=== PATIENT | male | born 1985 | race Two or more races ===

== ENCOUNTER 2024-08-05 19:21 | Inpatient (IN) | payer MEDICAID, OTHER ==
[~2024-08-05] VITALS: Ht 182.9 cm; Wt 109.4 kg
--- NOTE | 2024-08-05 19:56 | ED.PDOC ---
GI ASSESSMENT HPI Comments 48-year-old male who came to ER for abdominal pain. Patient states he has been having intermittent episodes of epigastric abdominal pain since yesterday, described as aching, sharp, nonradiating, associated bouts of nausea and vomiting. Does have history of gastric sleeve surgery 4 years ago. 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 Allergies: Coded Allergies: NO KNOWN ALLERGIES (Unverified , 08/05/24) Information Source: Patient Mode of Arrival: Ambulatory Timing: Hours Duration: Intermittent Prehospital treatment: None Quality: Aching, Sharp Vomitus: Watery Stool: Normal Severity: Moderate Recent: None Recent Hx of: Abdominal Surgery Pain Location: Epigastric Modifying Factors: Nothing Associated sign and symptoms: Nausea, Vomiting, Abdominal Pain Past Medical History PAST MEDICAL HISTORY: Denies Surgical History (Other): Gastric sleeve 4 years ago Family History Family History: Reviewed,noncontributory to illness Social History Smoker: Non-Smoker Alcohol: Denies ETOH Use Drugs: Denies Drug Use Lives In: Home Constitutional: denies: chills, diaphoresis, fatigue, fever, malaise, sweats, weakness, others EENTM: denies: blurred vision, double vision, ear bleeding, ear discharge, ear drainage, ear pain, ear ringing, eye pain, eye redness, hearing loss, mouth pain, mouth swelling, nasal discharge, nose bleeding, nose congestion, nose pain, photophobia, tearing, throat pain, throat swelling, voice changes, others Respiratory: denies: cough, hemoptysis, orthopnea, SOB at rest, shortness of breath, SOB with excertion, stridor, wheezing, others Cardiovascular: denies: chest pain, dizzy spells, diaphoresis, Dyspnea on exertion, edema, irregular heart beat, left arm pain, lightheadedness, palpitations, PND, syncope, others Gastrointestinal: reports: abdominal pain, nausea, vomiting; denies: abdomen distended, blood streaked bowels, constipated, diarrhea, dysphagia, difficulty swallowing, hematemesis, melena, poor appetite, poor fluid intake, rectal bleeding, rectal pain, others Genitourinary: denies: burning, dysuria, flank pain, frequency, hematuria, incontinence, penile discharge, penile sore, pain, testicle pain, testicle swelling, urgency, others Neurological: denies: dizziness, fainting, headache, left sided numbness, left sided weakness, numbness, paresthesia, pre-existing deficit, right sided numbness, right sided weakness, seizure, speech problems, tingling, tremors, weakness, others Musculoskeletal: denies: back pain, gout, joint pain, joint swelling, muscle pain, muscle stiffness, neck pain, others Integumetry: denies: bruises, change in color, change in hair/nails, dryness, laceration, lesions, lumps, rash, wounds, others Allergic/Immunocompromised: denies: Difficulty Healing, Frequent Infections, Hives, Itching, others Hematologic/Lymphatic: denies: anemia, blood clots, easy bleeding, easy bruising, swollen glands, others Endocrine: denies: excessive hunger, excessive sweating, excessive thirst, excessive urination, flushing, intolerance to cold, intolerance to heat, unexplained weight gain, unexplained weight loss, others Psychiatric: denies: anxiety, bipolar disorder, depression, hopeless, panic disorder, schizophrenia, sleepless, suicidal, others Physical Exam General Appearance: Mild Distress HEENT: Other (Pupils and face symmetric. Moist mucous membranes.) Neck: Full Range of Motion, Normal Inspection Respiratory: Lungs Clear, No Accessory Muscle Use, No Respiratory Distress, Normal Breath Sounds Cardiovascular: No Edema, No JVD, Regular Rate/Rhythm Breast Exam: Deferred Gastrointestinal: Epigastric, LUQ, RUQ, Soft, Tenderness Genitalia: Deferred Pelvic: Deferred Rectal: Deferred Extremities: Normal inspection, Normal range of motion, Non-tender, No pedal edema Neurologic: Alert (Oriented x4), Normal Affect, Normal Mood, Other (Ambulatory) Cerebellar Function: NOT DONE Reflexes: NOT DONE Skin: Dry, Pallor, Warm Lymphatic: NOT DONE Was a procedure done? Was a procedure done?: No GI differential Dx Differential Diagnosis: Cholecystitis, Diverticular disease, Gastritis/PUD, Gastroenteritis, Hernia, Hepatitis, Pancreatitis, PID, UTI, Diabetes/ DKA, Electrolyte Imbalance, Food Poisoning, Stress Ulcer X-Ray, Labs, Meds, VS Vital Signs Date Time Temp Pulse Resp B/P (MAP) Pulse Ox O2 Delivery O2 Flow Rate FiO2 08/05/24 21:20 53 20 113/56 08/05/24 20:43 98.6 60 14 122/67 (85) 95 98.6 08/05/24 20:43 60 14 95 Room Air 08/05/24 20:42 60 14 122/67 08/05/24 19:35 98.4 71 18 127/70 (89) 97 98.4 Lab Test 08/05/24 20:12 08/05/24 19:50 Range/Units White Blood Count 7.2 4.4-10.8 10^3/uL Red Blood Count 4.65 4.5-5.90 10^6/uL Hemoglobin 15.0 13.5-17.5 g/dL Hematocrit 43.6 41.0-53.0 % Mean Corpuscular Volume 93.6 80.0-100.0 fL Mean Corpuscular Hemoglobin 32.3 H 28.0-32.0 pg Mean Corpuscular Hemoglobin Concent 34.5 32.0-36.0 g/dL Red Cell Distribution Width 13.3 11.8-14.3 % Platelet Count 176 140-450 10^3/uL Mean Platelet Volume 9.0 6.9-10.8 fL Neutrophils (%) (Auto) 59.1 37.0-80.0 % Lymphocytes (%) (Auto) 21.1 10.0-50.0 % Monocytes (%) (Auto) 8.9 0.0-12.0 % Eosinophils (%) (Auto) 9.4 H 0.0-7.0 % Basophils (%) (Auto) 1.5 0.0-2.0 % Neutrophils # (Auto) 4.2 1.6-8.6 10 ^3/uL Lymphocytes # (Auto) 1.5 0.4-5.4 10 ^3/uL Monocytes # (Auto) 0.6 0-1.3 10 ^3/uL Eosinophils # (Auto) 0.7 0-0.8 10 ^3/uL Basophils # (Auto) 0.1 0-0.2 10 ^3/uL Nucleated Red Blood Cells 0.1 % Sodium Level 140 136-145 mmol/L Potassium Level 4.1 3.5-5.1 mmol/L Chloride Level 101 98-107 mmol/L Carbon Dioxide Level 33 H 20-31 mmol/L Anion Gap 6 5-15 Blood Urea Nitrogen 12 9-23 mg/dL Creatinine 1.19 0.700-1.30 mg/dL Glomerular Filtration Rate Calc 81 >90 mL/min BUN/Creatinine Ratio 10.1 10.0-20.0 Serum Glucose 97 74-106 mg/dL Calcium Level 9.4 8.7-10.4 mg/dL Total Bilirubin 0.6 0.2-1.0 mg/dL Aspartate Amino Transferase (AST) 15 <34 U/L Alanine Aminotransferase (ALT) 10 7-40 U/L Alkaline Phosphatase 64 46-116 U/L Troponin I High Sensitivity < 3 L </=54 ng/L Total Protein 7.2 5.7-8.2 g/dL Albumin 4.5 3.2-4.8 g/dL Lipase 47 12-53 U/L Urine Color Yellow Yellow Urine Clarity Clear Clear Urine pH 6.0 5.0-9.0 Urine Specific [place] 1.023 1.001-1.035 Urine Protein Negative Negative Urine Ketones Negative Negative Urine Blood Negative Negative /uL Urine Nitrite Negative Negative Urine Bilirubin Negative Negative Urine Urobilinogen Normal Negative mg/dL Urine Leukocyte Esterase Negative Negative /uL Urine RBC 1 0 - 3 /hpf Urine Microscopic WBC 1 0-3 /HPF Urine Squamous Epithelial Cells None seen <5 /hpf Urine Bacteria None seen None Seen /hpf Urine Glucose Normal Normal mg/dL Current Medications Medications (Trade) Dose Ordered Sig/Jus Route Start Time Stop Time Status Last Admin Sodium Chloride 1,000 ml @ 1,000 mls/hr Q1H ONCE IV 08/05/24 20:00 08/05/24 20:59 DC 08/05/24 20:41 Ondansetron HCl (Zofran) 4 mg ONCE ONCE IV 08/05/24 20:00 08/05/24 20:01 DC 08/05/24 20:41 Morphine Sulfate 4 mg ONCE ONCE IV 08/05/24 20:00 08/05/24 20:01 DC 08/05/24 20:42 Pantoprazole Sodium (Protonix) 40 mg ONCE ONCE IV 08/05/24 20:00 08/05/24 20:01 DC 08/05/24 20:41 Piperacillin Sod/ Tazobactam Sod 100 ml @ 100 mls/hr ONCE ONCE IV 08/05/24 21:00 08/05/24 21:59 DC 08/05/24 23:36 Exam: CT CT AB PEL WO CON-NO ORAL OR IV History: mid abd/epig pain, n/v Comparison Study: None TECHNIQUE: Multidetector CT of the abdomen and pelvis was performed from lung bases to pubic symphysis. Imaging was performed without IV contrast. Axial, coronal, and sagittal multiplanar reformats were obtained from the axial data set by the technologist. RADIATION DOSE: DLP 722.98 mGy.cm; CTDI vol 12.5 mGy. Findings: Limited evaluation of the solid organs in the absence of IV contrast. Lungs: Minimal basilar atelectasis. Liver: Unremarkable. Gallbladder: There is suggestion of mild gallbladder wall thickening and pericholecystic stranding. No definite biliary ductal dilatation. Spleen: Unremarkable. Pancreas: Unremarkable. Adrenals: Unremarkable Kidneys: Unremarkable. GI tract: No bowel obstruction. Postsurgical changes of the stomach. No CT ev idence of appendicitis. : Unremarkable. Vasculature: Unremarkable. Lymphadenopathy: Unremarkable. Peritoneum: No ascites. Musculoskeletal: Unremarkable. Soft tissues: Unremarkable Impression: 1. Findings as above raising the possibility of acute cholecystitis in the appropriate clinical setting. A right upper quadrant ultrasound may be beneficial in further assessment as clinically indicated. 2. Incidental findings as detailed. RIGHT UPPER QUADRANT ABDOMINAL ULTRASOUND CLINICAL HISTORY: eval for cholecystitis COMPARISON: CT obtained earlier the same day. TECHNIQUE: Grayscale and color Doppler ultrasound imaging of the right upper quadrant is performed. FINDINGS: Pancreas: Visualized portions appear grossly unremarkable. Liver: Measures approximately 18.5 cm in length. Circumscribed hyperechoic lesion anteriorly measuring approximately 1.5 cm in diameter. Gallbladder: Distended with wall thickening. Multiple stones are noted dependently and within the gallbladder neck. No sonographic pritchett's sign reported. Common bile duct: Nondilated. Right Kidney: Measures 10.1 cm in length. No hydronephrosis. Right upper quadrant Inferior vena cava: Visualized portions are grossly patent. IMPRESSION: Cholelithiasis with gallbladder distention and wall thickening. No sonographic pritchett's sign reported, however, this may be due to recent administration of pain medication. Findings suggest but are otherwise equivocal for cholecystitis. Please correlate clinically. Small, hyperechoic hepatic lesion incidentally noted. This most likely represents a hemangioma but can be further evaluated with follow-up MRI. X-Ray, Labs, Meds, VS Comment 38-year-old male with a history of gastric sleeve procedure complaining of abdominal pain Initial vitals unremarkable Exam remarkable for epigastric, right upper quadrant and left upper quadrant tenderness to palpation Rhythm strip independently interpreted by me: Sinus rhythm, rate 71, no ectopy. CT abdomen and pelvis Impression: 1. Findings as above raising the possibility of acute cholecystitis in the appropriate clinical setting. A right upper quadrant ultrasound may be beneficial in further assessment as clinically indicated. 2. Incidental findings as detailed. Right upper quadrant ultrasound IMPRESSION: Cholelithiasis with gallbladder distention and wall thickening. No sonographic m urphy's sign reported, however, this may be due to recent administration of pain medication. Findings suggest but are otherwise equivocal for cholecystitis. Please correlate clinically. Small, hyperechoic hepatic lesion incidentally noted. This most likely represents a hemangioma but can be further evaluated with follow-up MRI. CBC, CMP, lipase and UA unremarkable Patient treated with the following in the ED: 1 L 0.9 normal saline IV bolus, morphine 4 mg IV, Zofran 4 mg IV, Protonix 40 mg IV, Zosyn 4.5 g IV Plan is to admit the patient for IV antibiotics and surgical evaluation Time of 1ST Reevaluation: 19:51 Reevaluation 1ST: Unchanged Patient Education/Counseling: Diagnosis, Treatment Family Education/Counseling: No Family Present SEPSIS Sepsis Screen Physician Orders Troponin-I Hs (08/06/24 00:00) Troponin-I Hs (08/06/24 03:00) Troponin-I Hs (08/06/24 06:00) Ct Ab Pel Wo Con-No Oral Or Iv (08/05/24 19:48) Abdomen Limited (08/05/24 20:59) Blood Culture (08/05/24 20:59) Pantoprazole (Protonix) (08/06/24 10:00) Ceftriaxone 1gm/50ml D5w (Rocephin) (08/06/24 09:00) Allergies (08/05/24 22:20) Code Status (08/05/24 22:20) Oxygen Per Hour (08/05/24 22:20) Hydrocodone-Acet 5/325mg Tab ([place] 5/32 (08/05/24 22:30) Ondansetron Hcl (Zofran) (08/05/24 22:30) Docusate Sodium Capsule (Colace Capsule) (08/05/24 22:30) Complete Blood Count (08/06/24 04:00) Comprehensive Metabolic Panel (08/06/24 04:00) Condition: Serious (08/05/24 22:20) Acetaminophen Tablet (Tylenol Tablet) (08/05/24 22:30) Clear Liq Diet (08/06/24 Breakfast) Bedrest With Bathroom Privileg (08/05/24 22:20) Sequential Compression Device (08/05/24 ) Vital Signs Date Time Temp Pulse Resp B/P (MAP) Pulse Ox O2 Delivery O2 Flow Rate FiO2 08/05/24 21:20 53 20 113/56 08/05/24 20:43 98.6 60 14 122/67 (85) 95 98.6 08/05/24 20:43 60 14 95 Room Air 08/05/24 20:42 60 14 122/67 08/05/24 19:35 98.4 71 18 127/70 (89) 97 98.4 Laboratory Tests Test 08/05/24 20:12 White Blood Count 7.2 10^3/uL (4.4-10.8) Medications Medications Dose Ordered Sig/Jus Route Start Time Stop Time Status Last Admin Dose Admin Morphine Sulfate 4 mg ONCE ONCE IV 08/05/24 20:00 08/05/24 20:01 DC 08/05/24 20:42 Ondansetron HCl 4 mg ONCE ONCE IV 08/05/24 20:00 08/05/24 20:01 DC 08/05/24 20:41 Pantoprazole Sodium 40 mg ONCE ONCE IV 08/05/24 20:00 08/05/24 20:01 DC 08/05/24 20:41 Piperacillin Sod/ Tazobactam Sod 100 ml @ 100 mls/hr ONCE ONCE IV 08/05/24 21:00 08/05/24 21:59 DC 08/05/24 23:36 Sodium Chloride 1,000 ml @ 1,000 mls/hr Q1H ONCE IV 08/05/24 20:00 08/05/24 20:59 DC 08/05/24 20:41 Departure 1 Departure Time of Disposition: 21:28 Impression: Primary Impression: Acute cholecystitis Disposition: ADMITTED INPATIENT Admit to: Med Surg Condition: Guarded Critical Care Note Critical Care Time?: No Stability Stability form required: No Heart Score Heart Score: Heart Score Response (Comments) Value History N/A 0 EKG N/A 0 Age N/A 0 Risk Factors N/A 0 Troponin N/A 0 Total 0 I personally scribed for SUMANTH RODRIGUEZ MD ([facility]) on 08/05/24 at 19:56. Electronically submitted by Logan Figueroa ([facility]). I personally scribed for SUMANTH RODRIGUEZ MD ([facility]) on 08/05/24 at 21:04. Electronically submitted by Logan Figueroa ([facility]). I personally scribed for SUMANTH RODRIGUEZ MD ([facility]) on 08/05/24 at 23:24. Electronically submitted by Logan Figueroa ([facility]). SUMANTH RODRIGUEZ MD Aug 05, 2024 19:56
[2024-08-05 20:11] LABS: Urine Bacteria None Seen /hpf (None Seen)
[2024-08-05 20:24] LABS: Basophils # (auto) 0.1 10 ^3/uL (0-0.2); Basophils % (auto) 1.5 % (0.0-2.0); Eosinophils # (auto) 0.7 10 ^3/uL (0-0.8); Eosinophils % (auto) 9.4 % (0.0-7.0); Hematocrit 43.6 % (41.0-53.0); Lymphocytes # (auto) 1.5 10 ^3/uL (0.4-5.4); Lymphocytes % (auto) 21.1 % (10.0-50.0); Mean Corpuscular Hemoglobin 32.3 pg (28.0-32.0); Mean Corpuscular Hgb Conc. 34.5 g/dL (32.0-36.0); Mean Corpuscular Volume 93.6 fL (80.0-100.0); Monocytes # (auto) 0.6 10 ^3/uL (0-1.3); Monocytes % (auto) 8.9 % (0.0-12.0); Neutrophils # (auto) 4.2 10 ^3/uL (1.6-8.6); Neutrophils % (auto) 59.1 % (37.0-80.0); Nucleated Red Blood Cells % 0.1 %; Platelet Count (auto) 176 10^3/uL (140-450); Red Blood Cells 4.65 10^6/uL (4.5-5.90); Red Cell Distribution Width 13.3 % (11.8-14.3); White Blood Cell 7.2 10^3/uL (4.4-10.8)
[2024-08-05 20:39] LABS: Urine Blood Negative /uL (Negative); Urine Clarity Clear (Clear); Urine Color Yellow (Yellow); Urine Protein, UAD Negative (Negative); Urine Specific Gravity 1.023 (1.001-1.035); Urine Squamous Epithelial Cell None Seen /hpf (<5); Urine Urobilinogen Normal (Negative); Urine WBC 1 /HPF (0-3)
[2024-08-05] MEDS: PANTOPRAZOLE 40 MG/10 ML VIAL INJ IV ONE (20:41)
[2024-08-05] MEDS: ONDANSETRON HCL 4 MG/2 ML VIAL IV ONE (20:41)
[2024-08-05] MEDS: SODIUM CHLORIDE 0.9% 1,000 ML IV ONE (20:41)
[2024-08-05] MEDS: MORPHINE SULFATE 4 MG/ML SYR/VIAL IV ONE (20:42)
[2024-08-05 20:56] LABS: Alanine Aminotransferase 10 U/L (7-40); Albumin 4.5 g/dL (3.2-4.8); Alkaline Phosphatase 64 U/L (46-116); Anion Gap 6 (5-15); Aspartate Aminotransferase 15 U/L (<34); BUN/Creatinine Ratio 10.1 (10.0-20.0); Blood Urea Nitrogen 12 mg/dL (9-23); Calcium 9.4 mg/dL (8.7-10.4); Chloride 101 mmol/L (98-107); Glucose 97 mg/dL (74-106); Lipase 47 U/L (12-53); Potassium 4.1 mmol/L (3.5-5.1); Sodium 140 mmol/L (136-145); Total Protein 7.2 g/dL (5.7-8.2)
[2024-08-05 20:57] LABS: Bilirubin, Total 0.6 mg/dL (0.2-1.0)
--- NOTE | 2024-08-05 20:57 | DVH ---
Exam: CT CT AB PEL WO CON-NO ORAL OR IV History: mid abd/epig pain, n/v Comparison Study: None TECHNIQUE: Multidetector CT of the abdomen and pelvis was performed from lung bases to pubic symphysi s. Imaging was performed without IV contrast. Axial, coronal, and sagittal multiplanar reformats were obtained from the axial data set by the technologist. RADIATION DOSE: DLP 722.98 mGy.cm; CTDI vol 12.5 mGy. Findings: Limited evaluation of the solid organs in the absence of IV contrast. Lungs: Minimal basilar atelectasis. Liver: Unremarkable. Gallbladder: There is suggestion of mild gallbladder wall thickening and pericholecystic stranding. No definite biliary ductal dilatation. Spleen: Unremarkable. Pancreas: Unremarkable. Adrenals: Unremarkable Kidneys: Unremarkable. GI tract: No bowel obstruction. Postsurgical changes of the stomach. No CT evidence of appendicitis. : Unremarkable. Vasculature: Unremarkable. Lymphadenopathy: Unremarkable. Peritoneum: No ascites. Musculoskeletal: Unremarkable. Soft tissues: Unremarkable Impression: 1. Findings as above raising the possibility of acute cholecystitis in the appropriate clinical setti ng. A right upper quadrant ultrasound may be beneficial in further assessment as clinically indicated . 2. Incidental findings as detailed.
[2024-08-05 20:58] LABS: Carbon Dioxide 33 mmol/L (20-31)
[2024-08-05] MEDS ORDERED: ONDANSETRON HCL 4 MG/2 ML VIAL IV PRN (22:30)
[2024-08-05] MEDS ORDERED: ACETAMINOPHEN 325 MG TAB PO PRN (22:30)
[2024-08-05] MEDS ORDERED: DOCUSATE SOD 100 MG CAP PO PRN (22:30)
--- NOTE | 2024-08-05 22:38 | DVH ---
RIGHT UPPER QUADRANT ABDOMINAL ULTRASOUND CLINICAL HISTORY: eval for cholecystitis COMPARISON: CT obtained earlier the same day. TECHNIQUE: Grayscale and color Doppler ultrasound imaging of the right upper quadrant is performed. FINDINGS: Pancreas: Visualized portions appear grossly unremarkable. Liver: Measures approximately 18.5 cm in length. Circumscribed hyperechoic lesion anteriorly measurin g approximately 1.5 cm in diameter. Gallbladder: Distended with wall thickening. Multiple stones are noted dependently and within the gal lbladder neck. No sonographic pritchett's sign reported. Common bile duct: Nondilated. Right Kidney: Measures 10.1 cm in length. No hydronephrosis. Right upper quadrant Inferior vena cava: Visualized portions are grossly patent. IMPRESSION: Cholelithiasis with gallbladder distention and wall thickening. No sonographic pritchett's sign reported , however, this may be due to recent administration of pain medication. Findings suggest but are othe rwise equivocal for cholecystitis. Please correlate clinically. Small, hyperechoic hepatic lesion incidentally noted. This most likely represents a hemangioma but c an be further evaluated with follow-up MRI.
--- NOTE | 2024-08-05 23:27 | DVHHP2 ---
History of Present Illness Reason for Visit: Acute cholecystitis History of Present Illness The patient is a 48-year-old male who denies past medical history presented to [facility] ED with complaint of intermittent epigastric abdominal pain. Patient reports he has been experiencing nonradiating episodes of abdomina l pain, associated with nausea, vomiting, getting worse that prompted this visit. Patient does have history of gastric sleeves surgery 4 years ago. Patient was seen and evaluated in the ED, laboratory data shows WBC 7.2, platelets 176, sodium 140, potassium 4.1, BUN 12, creatinine 1.19, glucose 97, calcium 9.4, troponin < 3, blood pressure 113/56, heart rate 60, temperature 98.6 F, O2 saturation 95% on room air. Abdomen/pelvis CT revealing cholecystitis, please see medication orders section in the computer. On my assessment, patient denies chest pain, no headache, no dizziness, no diaphoresis, no shortness of breath, no abdominal pain at this moment, no nausea, no vomiting, no fever, no chills. Patient was admitted for further evaluation and medical management. Past Medical History Denies past medical history Past Surgical History Gastric sleeve 4 years ago Family History Reviewed, noncontributory to the management of this case. Past Social History The patient lives at home, denies smoking, alcohol or illicit drugs abuse. Review of Systems Constitutional: No: Fever, Chills, Sweats, Weakness, Malaise, Other Eyes: No: Pain, Vision change, Conjunctivae inflammation, Eyelid inflammation, Other, Redness ENT: No: Ear pain, Ear discharge, Nose pain, Nose discharge, Nose congestion, Mouth pain, Mouth swelling, Throat pain, Throat swelling, Other Respiratory: No: Cough, Dry, Shortness of breath, SOB with excertion, Wheezing, Hemoptysis, Pleuritic Pain, Sputum, Wheezing, Other Cardiovascular: No: Chest Pain, Palpitations, Orthopnea, Paroxysmal Noc. Dyspnea, Edema, Lt Headedness, Other Gastrointestinal: Nausea, Vomiting, Abdominal Pain; No: Diarrhea, Constipation, Melena, Hematochezia, Other Genitourinary: No Dysuria, No Frequency, No Incontinence, No Hematuria, No Retention, No Other Musculoskeletal: No: other, neck pain, shoulder pain, arm pain, back pain, hand pain, leg pain, foot pain Skin: No: Rash, Lesions, Jaundice, Bruising, Other Neurological: No: Weakness, Numbness, Incoordination, Change in speech, Confusion, Seizures, Other Allergies: Coded Allergies: NO KNOWN ALLERGIES (Unverified , 08/05/24) Medications Current Medications Medications Dose Ordered Sig/Jus Route Start Time Stop Time Status Last Admin Dose Admin Pantoprazole Sodium 40 mg DAILY IV 08/06/24 10:00 Ceftriaxone Sodium 50 ml @ 100 mls/hr DAILY@09 IV 08/06/24 09:00 Acetaminophen/ Hydrocodone Bitart 1 tab Q4HP PRN PO 08/05/24 22:30 Ondansetron HCl 4 mg Q4HP PRN IV 08/05/24 22:30 Docusate Sodium 100 mg BIDPRN PRN PO 08/05/24 22:30 Acetaminophen 650 mg Q6HP PRN PO 08/05/24 22:30 Exam Vital Signs Vital Signs Date Time Temp Pulse Resp B/P (MAP) Pulse Ox O2 Delivery O2 Flow Rate FiO2 08/05/24 21:20 53 20 113/56 08/05/24 20:43 98.6 95 98.6 08/05/24 20:43 Room Air General Appearance: Alert, Oriented X3, Cooperative, No acute distress HEENT: Atraumatic, PERRLA, EOMI, Mucous membr. moist/pink Respiratory: Clear to auscultation, Normal air movement Cardiovascular: Regular rate, Normal S1, Normal S2, No murmurs Abdominal: Normal bowel sounds, Soft, No hepatospenomegaly, No masses, Other (Reports tenderness) Extremities: No clubbing, No cyanosis, No edema, Normal pulses, No tendernes s/swelling Skin: No rashes, No breakdown, No significant lesion Neuro: Normal gait, Normal speech, Strength at 5/5 X4 ext, Normal tone, Sensation intact, Cranial nerves 3-12 NL, Reflexes 2+ Psych/Mental Status: Mental status NL, Mood NL Labs/Xrays Labs Test 08/05/24 20:12 08/05/24 19:50 Range/Units White Blood Count 7.2 4.4-10.8 10^3/uL Red Blood Count 4.65 4.5-5.90 10^6/uL Hemoglobin 15.0 13.5-17.5 g/dL Hematocrit 43.6 41.0-53.0 % Mean Corpuscular Volume 93.6 80.0-100.0 fL Mean Corpuscular Hemoglobin 32.3 H 28.0-32.0 pg Mean Corpuscular Hemoglobin Concent 34.5 32.0-36.0 g/dL Red Cell Distribution Width 13.3 11.8-14.3 % Platelet Count 176 140-450 10^3/uL Mean Platelet Volume 9.0 6.9-10.8 fL Neutrophils (%) (Auto) 59.1 37.0-80.0 % Lymphocytes (%) (Auto) 21.1 10.0-50.0 % Monocytes (%) (Auto) 8.9 0.0-12.0 % Eosinophils (%) (Auto) 9.4 H 0.0-7.0 % Basophils (%) (Auto) 1.5 0.0-2.0 % Neutrophils # (Auto) 4.2 1.6-8.6 10 ^3/uL Lymphocytes # (Auto) 1.5 0.4-5.4 10 ^3/uL Monocytes # (Auto) 0.6 0-1.3 10 ^3/uL Eosinophils # (Auto) 0.7 0-0.8 10 ^3/uL Basophils # (Auto) 0.1 0-0.2 10 ^3/uL Nucleated Red Blood Cells 0.1 % Sodium Level 140 136-145 mmol/L Potassium Level 4.1 3.5-5.1 mmol/L Chloride Level 101 98-107 mmol/L Carbon Dioxide Level 33 H 20-31 mmol/L Anion Gap 6 5-15 Blood Urea Nitrogen 12 9-23 mg/dL Creatinine 1.19 0.700-1.30 mg/dL Glomerular Filtration Rate Calc 81 >90 mL/min BUN/Creatinine Ratio 10.1 10.0-20.0 Serum Glucose 97 74-106 mg/dL Calcium Level 9.4 8.7-10.4 mg/dL Total Bilirubin 0.6 0.2-1.0 mg/dL Aspartate Amino Transferase (AST) 15 <34 U/L Alanine Aminotransferase (ALT) 10 7-40 U/L Alkaline Phosphatase 64 46-116 U/L Troponin I High Sensitivity < 3 L </=54 ng/L Total Protein 7.2 5.7-8.2 g/dL Albumin 4.5 3.2-4.8 g/dL Lipase 47 12-53 U/L Urine Color Yellow Yellow Urine Clarity Clear Clear Urine pH 6.0 5.0-9.0 Urine Specific [place] 1.023 1.001-1.035 Urine Protein Negative Negative Urine Ketones Negative Negative Urine Blood Negative Negative /uL Urine Nitrite Negative Negative Urine Bilirubin Negative Negative Urine Urobilinogen Normal Negative mg/dL Urine Leukocyte Esterase Negative Negative /uL Urine RBC 1 0 - 3 /hpf Urine Microscopic WBC 1 0-3 /HPF Urine Squamous Epithelial Cells None seen <5 /hpf Urine Bacteria None seen None Seen /hpf Urine Glucose Normal Normal mg/dL PATIENT: GÉNESIS AHUJAT: [id number] UNIT: [id number] : 1985 LOC: ER ROOM / BED: / AGE / SEX: 38 / M ADM STATUS: REG ER SERVICE 47 ORDERING PHYSICIAN: SUMANTH RODRIGUEZ MD PROCEDURE(s): ABPL - CT AB PEL WO CON-NO ORAL OR IV REASON: mid abd/epig pain, n/v ORDER NUMBER(s): [id number], ACCESSION NUMBER(s): [id number] Exam: CT CT AB PEL WO CON-NO ORAL OR IV History: mid abd/epig pain, n/v Comparison Study: None TECHNIQUE: Multidetector CT of the abdomen and pelvis was performed from lung bases to pubic symphysis. Imaging was performed without IV contrast. Axial, coronal, and sagittal multiplanar reformats were obtained from the axial data set by the technologist. RADIATION DOSE: DLP 722.98 mGy.cm; CTDI vol 12.5 mGy. Findings: Limited evaluation of the solid organs in the absence of IV contrast. Lungs: Minimal basilar atelectasis. Liver: Unremarkable. Gallbladder: There is suggestion of mild gallbladder wall thickening and pericholecystic stranding. No definite biliary ductal dilatation. Spleen: Unremarkable. Pancreas: Unremarkable. Adrenals: Unremarkable Kidneys: Unremarkable. GI tract: No bowel obstruction. Postsurgical changes of the stomach. No CT evide nce of appendicitis. : Unremarkable. Vasculature: Unremarkable. Lymphadenopathy: Unremarkable. Peritoneum: No ascites. Musculoskeletal: Unremarkable. Soft tissues: Unremarkable Impression: 1. Findings as above raising the possibility of acute cholecystitis in the appropriate clinical setting. A right upper quadrant ultrasound may be beneficial in further assessment as clinically indicated. 2. Incidental findings as detailed. ORDERING PHYSICIAN: SUMANTH RODRIGUEZ MD PROCEDURE(s): ABDL - ABDOMEN LIMITED REASON: eval for cholecystitis ORDER NUMBER(s): [id number], ACCESSION NUMBER(s): [id number] RIGHT UPPER QUADRANT ABDOMINAL ULTRASOUND CLINICAL HISTORY: eval for cholecystitis COMPARISON: CT obtained earlier the same day. TECHNIQUE: Grayscale and color Doppler ultrasound imaging of the right upper quadrant is performed. FINDINGS: Pancreas: Visualized portions appear grossly unremarkable. Liver: Measures approximately 18.5 cm in length. Circumscribed hyperechoic lesion anteriorly measuring approximately 1.5 cm in diameter. Gallbladder: Distended with wall thickening. Multiple stones are noted dependently and within the gallbladder neck. No sonographic pritchett's sign reported. Common bile duct: Nondilated. Right Kidney: Measures 10.1 cm in length. No hydronephrosis. Right upper quadrant Inferior vena cava: Visualized portions are grossly patent. IMPRESSION: Cholelithiasis with gallbladder distention and wall thickening. No sonographic pritchett's sign reported, however, this may be due to recent administration of pain medication. Findings suggest but are otherwise equivocal for cholecystitis. Please correlate clinically. Small, hyperechoic hepatic lesion incidentally noted. This most likely rep resents a hemangioma but can be further evaluated with follow-up MRI. Assessment/Plan Assessment/Plan Acute abdominal pain Acute cholecystitis Plan 1. Admit to telemetry unit 2. Breathing treatment 3. Pain control management 4. IV antibiotic management 5. Management of fluids and electrolytes 6. Consultation for surgery 7. Diagnostic test abdomen/pelvis CT 8. DVT prophylaxis-on SCDs 9. Repeat labs CBC, CMP in a.m. 10. Home medication reviewed and reconciled 11. Continue with current medical management 12. Treatment plan discussed with patient and RN. Patient verbalized understanding. Plan discussed with: Patient, Other (RN) My Orders Orders - THIAGO SIMMS DNP Procedure Category Date Status Time Pantoprazole PHA 08/06/24 In Process (Protonix) 10:00 Ceftriaxone 1gm/50ml PHA 08/06/24 In Process D5w (Rocephin) 09:00 Allergies CHANTAL 08/05/24 In Process 22:20 Code Status CODE 08/05/24 Transmitted 22:20 Oxygen Per Hour RT 08/05/24 Transmitted 22:20 Hydrocodone-Acet PHA 08/05/24 In Process 5/325mg Tab ([place] 22:30 Ondansetron Hcl PHA 08/05/24 In Process (Zofran) 22:30 Docusate Sodium PHA 08/05/24 In Process Capsule (Colace 22:30 Complete Blood Count LAB 08/06/24 Verified 04:00 Comprehensive LAB 08/06/24 Verified Metabolic Panel 04:00 Condition: Serious CHANTAL 08/05/24 In Process 22:20 Acetaminophen Tablet PHA 08/05/24 In Process (Tylenol Tablet) 22:30 Clear Liq Diet DIET 08/06/24 Transmitted Breakfast Bedrest With Bathroom CHANTAL 08/05/24 In Process Privileg 22:20 Sequential CHANTAL 08/05/24 In Process Compression Device * Surgical Consult CONS 08/05/24 Transmitted Admit ADMIT 08/05/24 Transmitted 23:25 Nitroglycerin PHA 08/05/24 Logged Sublingual (Ntrostat 23:30 Morphine Sulfate PHA 08/05/24 Logged Injection 23:30 Stat Ekg For Chest CHANTAL 08/05/24 Transmitted Pain 23:25 Notify Md Of Changes CHANTAL 08/05/24 Transmitted From Base 23:25 Compliance Manager For CHANTAL 08/05/24 Transmitted 24 Hours 23:25 Emergency Dysrhythmia CHANTAL 08/05/24 Transmitted Protocol 23:25 Rhythm Strips Once CHANTAL 08/05/24 Transmitted Every Shift 23:25 Oxygen By Nasal RT 08/05/24 Transmitted Cannula 23:25 Problem List: (1) Acute abdominal pain (2) Acute cholecystitis Date of Service: Aug 05, 2024 Billing Provider: THIAGO SIMMS DNP Common Visit Codes: [id number] INP/OBS CARE (HIGH) THIAGO SIMMS DNP Aug 05, 2024 23:27
[2024-08-05] MEDS ORDERED: NITROGLYCERIN 0.4 MG SL TAB SL PRN (23:30)
[2024-08-05] MEDS ORDERED: MORPHINE SULFATE INJ 2 MG/ml SYRG IV PRN (23:30)
[2024-08-05] MEDS: PIPERACILLIN-TAZO 4.5GM 100 ML IV ONE (23:36)
[2024-08-06] MEDS: PIPERACILLIN-TAZO 4.5GM 100 ML IV ONE (01:55)
[2024-08-06 04:30] LABS: Basophils # (auto) 0.1 10 ^3/uL (0-0.2); Eosinophils # (auto) 0.7 10 ^3/uL (0-0.8); Eosinophils % (auto) 9.5 % (0.0-7.0); Hematocrit 40.9 % (41.0-53.0); Hemoglobin 14.2 g/dL (13.5-17.5); Lymphocytes # (auto) 1.2 10 ^3/uL (0.4-5.4); Lymphocytes % (auto) 17.8 % (10.0-50.0); Mean Corpuscular Hemoglobin 32.6 pg (28.0-32.0); Mean Corpuscular Hgb Conc. 34.7 g/dL (32.0-36.0); Mean Corpuscular Volume 93.8 fL (80.0-100.0); Monocytes # (auto) 0.7 10 ^3/uL (0-1.3); Monocytes % (auto) 9.7 % (0.0-12.0); Neutrophils # (auto) 4.3 10 ^3/uL (1.6-8.6); Nucleated Red Blood Cells % 0.1 %; Platelet Count (auto) 163 10^3/uL (140-450); Red Blood Cells 4.35 10^6/uL (4.5-5.90); Red Cell Distribution Width 13.5 % (11.8-14.3)
[2024-08-06 05:01] LABS: Alanine Aminotransferase 12 U/L (7-40); Alkaline Phosphatase 63 U/L (46-116); Anion Gap 7 (5-15); Aspartate Aminotransferase 17 U/L (<34); BUN/Creatinine Ratio 8.3 (10.0-20.0); Bilirubin, Total 0.8 mg/dL (0.2-1.0); Blood Urea Nitrogen 9 mg/dL (9-23); Calcium 8.8 mg/dL (8.7-10.4); Carbon Dioxide 30 mmol/L (20-31); Chloride 103 mmol/L (98-107); Glucose 89 mg/dL (74-106); Potassium 3.9 mmol/L (3.5-5.1); Sodium 140 mmol/L (136-145); Total Protein 6.5 g/dL (5.7-8.2)
[2024-08-06 08:00] VITALS: PULSE 59; RESP 16; O2SAT 97
[2024-08-06] MEDS: cefTRIAXone 1GM/50ML D5W 50 ML IV SCH (09:12)
--- NOTE | 2024-08-06 10:54 | DVHPN2 ---
Subjective Patient is seen and examined at bedside. The patient complained of abdominal pain and nausea. No vomiting. Reviewed: Care Plan, H&P, Labs, Medications, Previous Orders, Radiology Changes from previous H/P or p: No Changes Eyes: No Pain, No Vision change, No Conjunctivae inflammation, No Eyelid inflammation, No Other, No Redness ENT: No Ear pain, No Ear discharge, No Nose pain, No Nose discharge, No Nose congestion, No Mouth pain, No Mouth swelling, No Throat pain, No Throat swelling, No Other Cardiovascular: No Chest Pain, No Palpitations, No Orthopnea, No Paroxysmal Noc. Dyspnea, No Edema, No Lt Headedness, No Other Respiratory: No Cough, No Dry, No Shortness of breath, No SOB with excertion, No Wheezing, No Hemoptysis, No Pleuritic Pain, No Sputum, No Other Gastrointestinal: Nausea, Vomiting, Abdominal Pain; No Diarrhea, No Constipation, No Melena, No Hematochezia, No Other Genitourinary: No Dysuria, No Frequency, No Incontinence, No Hematuria, No Retention, No Other Musculoskeletal: No other, No neck pain, No shoulder pain, No arm pain, No back pain, No hand pain, No leg pain, No foot pain Skin: No Rash, No Lesions, No Jaundice, No Bruising, No Other Objective Vitals Vital Signs Date Time Temp Pulse Resp B/P (MAP) Pulse Ox O2 Delivery O2 Flow Rate FiO2 08/06/24 08:00 59 16 97 Room Air* 0 21 08/06/24 08:00 98.8 108/61 (77) 98.8 Intake/Output Intake and Output 08/06/24 07:00 Intake Total 1000 ml Balance 1000 ml Intake IV Total 1000 ml General Appearance: Alert, Oriented X3, Cooperative, No acute distress HEENT: Atraumatic, PERRLA, EOMI, Mucous membr. moist/pink Lungs: Clear to auscultation, Normal air movement Cardiovascular: Regular rate, Normal S1, Normal S2, No murmurs, Gallops, Rubs Abdomen: Normal bowel sounds, Soft, Other (In the in all four quadrant) Extremities: Normal pulses Neuro: Cranial nerves 3-12 NL Psych/Mental Status: Mental status NL Medications Current Medications Medications Dose Ordered Sig/Jus Route Start Time Stop Time Status Last Admin Dose Admin Pantoprazole Sodium 40 mg DAILY IV 08/06/24 10:00 Ceftriaxone Sodium 50 ml @ 100 mls/hr DAILY@09 IV 08/06/24 09:00 08/06/24 09:12 100 MLS/HR Acetaminophen/ Hydrocodone Bitart 1 tab Q4HP PRN PO 08/05/24 22:30 Ondansetron HCl 4 mg Q4HP PRN IV 08/05/24 22:30 Docusate Sodium 100 mg BIDPRN PRN PO 08/05/24 22:30 Acetaminophen 650 mg Q6HP PRN PO 08/05/24 22:30 Nitroglycerin 0.4 mg Q5MINP PRN SL 08/05/24 23:30 Morphine Sulfate 2 mg Q30M PRN IV 08/05/24 23:30 Laboratory Results Laboratory Tests 08/06/24 03:48 Chemistry Test 08/05/24 20:12 08/06/24 03:48 Albumin 4.5 g/dL (3.2-4.8) 4.0 g/dL (3.2-4.8) Calcium Level 9.4 mg/dL (8.7-10.4) 8.8 mg/dL (8.7-10.4) Total Protein 7.2 g/dL (5.7-8.2) 6.5 g/dL (5.7-8.2) Lipid panel Test 08/05/24 20:12 Lipase 47 U/L (12-53) LFT Test 08/05/24 20:12 08/06/24 03:48 Alanine Aminotransferase (ALT) 10 U/L (7-40) 12 U/L (7-40) Alkaline Phosphatase 64 U/L (46-116) 63 U/L (46-116) Aspartate Amino Transferase (AST) 15 U/L (<34) 17 U/L (<34) Total Bilirubin 0.6 mg/dL (0.2-1.0) 0.8 mg/dL (0.2-1.0) Urinalysis Test 08/05/24 19:50 Urine Color Yellow (Yellow) Urine Clarity Clear (Clear) Urine pH 6.0 (5.0-9.0) Urine Specific [place] 1.023 (1.001-1.035) Urine Protein Negative (Negative) Urine Ketones Negative (Negative) Urine Blood Negative /uL (Negative) Urine Nitrite Negative (Negative) Urine Bilirubin Negative (Negative) Urine Urobilinogen Normal mg/dL (Negative) Urine Leukocyte Esterase Negative /uL (Negative) Urine RBC 1 /hpf (0 - 3) Urine Microscopic WBC 1 /HPF (0-3) Urine Squamous Epithelial Cells None seen /hpf (<5) Urine Bacteria None seen /hpf (None Seen) Urine Glucose Normal mg/dL (Normal) Labs and/or images reviewed: Labs reviewed by me Assessment/Plan Assessment/Plan Acute abdominal pain Acute cholecystitis Continuing current management. Continuing with IV antibiotic. Continuing with IV pain medication. Continuing with IV fluid. Continuing to keep the patient NPO Appreciate surgeon input Cholecystectomy soon.. This medical document was created using an electronic medical record system with [email or web address] direct computerized dictation system. Although this document has been carefully reviewed, there may still be some phonetic and typographical errors. These areas are purely typographical due to imperfections of the software programs, and do not reflect any compromise in the patient's medical care. Plan discussed with: Patient Date of Service: Aug 06, 2024 Billing Provider: DANNY TENA MD Common Visit Codes: [id number] INP/OBS CARE(HIGH) DANNY TENA MD Aug 06, 2024 10:54
[2024-08-06] MEDS: HYDROcodone-ACET 5/325MG TAB PO PRN (11:27)
[2024-08-06] MEDS: PANTOPRAZOLE 40 MG/10 ML VIAL INJ IV SCH (11:27)
[2024-08-06 12:00] VITALS: BP 104/61; PULSE 60; RESP 16; TEMP 98.2; O2SAT 98
[2024-08-06 20:00] VITALS: PULSE 56; PULSE 63; RESP 20; O2SAT 98
[2024-08-06 21:00] VITALS: BP 109/66; PULSE 56; RESP 20; TEMP 97.7; O2SAT 98
[2024-08-07] VITALS (8 sets, daily range): BP systolic 108–122; BP diastolic 65–85; PULSE 55–65; RESP 16–20; TEMP 97.3–98.8; O2SAT 95–99
--- NOTE | 2024-08-07 12:08 | DVHINCON2 ---
Date of service: Aug 07, 2024 Family History: Alzheimer's disease G8 FATHER Diabetes mellitus G8 MOTHER Allergies: Coded Allergies: NO KNOWN ALLERGIES (Unverified , 08/05/24) Vital Signs Vital Signs Date Time Temp Pulse Resp B/P (MAP) Pulse Ox O2 Delivery O2 Flow Rate FiO2 08/07/24 08:30 97.3 57 16 109/66 (80) 95 97.3 08/07/24 08:00 Room Air* 0 21 Labs/Diagnostic Data Labs Test 08/06/24 03:48 08/05/24 22:19 08/05/24 20:12 08/05/24 19:50 Range/Units White Blood Count 7.0 4.4-10.8 10^3/uL Red Blood Count 4.35 L 4.5-5.90 10^6/uL Hemoglobin 14.2 13.5-17.5 g/dL Hematocrit 40.9 L 41.0-53.0 % Mean Corpuscular Volume 93.8 80.0-100.0 fL Mean Corpuscular Hemoglobin 32.6 H 28.0-32.0 pg Mean Corpuscular Hemoglobin Concent 34.7 32.0-36.0 g/dL Red Cell Distribution Width 13.5 11.8-14.3 % Platelet Count 163 140-450 10^3/uL Mean Platelet Volume 9.2 6.9-10.8 fL Neutrophils (%) (Auto) 62.0 37.0-80.0 % Lymphocytes (%) (Auto) 17.8 10.0-50.0 % Monocytes (%) (Auto) 9.7 0.0-12.0 % Eosinophils (%) (Auto) 9.5 H 0.0-7.0 % Basophils (%) (Auto) 1.0 0.0-2.0 % Neutrophils # (Auto) 4.3 1.6-8.6 10 ^3/uL Lymphocytes # (Auto) 1.2 0.4-5.4 10 ^3/uL Monocytes # (Auto) 0.7 0-1.3 10 ^3/uL Eosinophils # (Auto) 0.7 0-0.8 10 ^3/uL Basophils # (Auto) 0.1 0-0.2 10 ^3/uL Nucleated Red Blood Cells 0.1 % Sodium Level 140 136-145 mmol/L Potassium Level 3.9 3.5-5.1 mmol/L Chloride Level 103 98-107 mmol/L Carbon Dioxide Level 30 20-31 mmol/L Anion Gap 7 5-15 Blood Urea Nitrogen 9 9-23 mg/dL Creatinine 1.08 0.700-1.30 mg/dL Glomerular Filtration Rate Calc 91 >90 mL/min BUN/Creatinine Ratio 8.3 L 10.0-20.0 Serum Glucose 89 74-106 mg/dL Calcium Level 8.8 8.7-10.4 mg/dL Total Bilirubin 0.8 0.2-1.0 mg/dL Aspartate Amino Transferase (AST) 17 <34 U/L Alanine Aminotransferase (ALT) 12 7-40 U/L Alkaline Phosphatase 63 46-116 U/L Total Protein 6.5 5.7-8.2 g/dL Albumin 4.0 3.2-4.8 g/dL Troponin I High Sensitivity < 3 L </=54 ng/L Lipase 47 12-53 U/L Urine Color Yellow Yellow Urine Clarity Clear Clear Urine pH 6.0 5.0-9.0 Urine Specific [place] 1.023 1.001-1.035 Urine Protein Negative Negative Urine Ketones Negative Negative Urine Blood Negative Negative /uL Urine Nitrite Negative Negative Urine Bilirubin Negative Negative Urine Urobilinogen Normal Negative mg/dL Urine Leukocyte Esterase Negative Negative /uL Urine RBC 1 0 - 3 /hpf Urine Microscopic WBC 1 0-3 /HPF Urine Squamous Epithelial Cells None seen <5 /hpf Urine Bacteria None seen None Seen /hpf Urine Glucose Normal Normal mg/dL Microbiology Date/Time Source Procedure Growth Status 08/05/24 22:19 Blood Blood Culture - Preliminary NO GROWTH AFTER 24 HOURS OF INCUBATION. Resulted Assessment 38 YEAR OLD MALE HAD A GASTRIC SLEEVE OPERATION FOLLOWING WJICH HE LOSTY 115 LBS, NOW HAS CHOLELITHIASIS AND CHOLECYSTITIS. LAPAROSCOPIC POSSIBLY OPEN CHOLECYSTECTOMY RISKS AND COMPLICATIONS EXPLAINED IN DETAIL Plan discussed with: Patient BOY FORMAN MD Aug 07, 2024 12:08
--- NOTE | 2024-08-07 23:29 | DVHPN2 ---
Subjective Patient is seen and examined at bedside. Still have abdominal pain, especially right upper quadrant. No nausea or vomiting. Reviewed: Care Plan, H&P, Labs, Medications, Previous Orders, Radiology Changes from previous H/P or p: No Changes Eyes: No Pain, No Vision change, No Conjunctivae inflammation, No Eyelid inflammation, No Other, No Redness ENT: No Ear pain, No Ear discharge, No Nose pain, No Nose discharge, No Nose congestion, No Mouth pain, No Mouth swelling, No Throat pain, No Throat swelling, No Other Cardiovascular: No Chest Pain, No Palpitations, No Orthopnea, No Paroxysmal Noc. Dyspnea, No Edema, No Lt Headedness, No Other Respiratory: No Cough, No Dry, No Shortness of breath, No SOB with excertion, No Wheezing, No Hemoptysis, No Pleuritic Pain, No Sputum, No Other Gastrointestinal: Nausea, Vomiting, Abdominal Pain; No Diarrhea, No Constipation, No Melena, No Hematochezia, No Other Genitourinary: No Dysuria, No Frequency, No Incontinence, No Hematuria, No Retention, No Other Musculoskeletal: No other, No neck pain, No shoulder pain, No arm pain, No back pain, No hand pain, No leg pain, No foot pain Skin: No Rash, No Lesions, No Jaundice, No Bruising, No Other Objective Vitals Vital Signs Date Time Temp Pulse Resp B/P (MAP) Pulse Ox O2 Delivery O2 Flow Rate FiO2 08/07/24 21:00 98.8 62 20 122/85 (97) 96 98.8 08/07/24 08:00 Room Air* 0 21 Intake/Output Intake and Output 08/07/24 07:00 Intake Total 250 ml Balance 250 ml Intake Oral 200 ml IV Total 50 ml # Voids 2 General Appearance: Alert, Oriented X3, Cooperative, No acute distress HEENT: Atraumatic, PERRLA, EOMI, Mucous membr. moist/pink Neck: Supple Lungs: Clear to auscultation, Normal air movement Cardiovascular: Regular rate, Normal S1, Normal S2, No murmurs, Gallops, Rubs Abdomen: Normal bowel sounds, Soft, Other (The right upper quadrant) Extremities: Normal pulses Neuro: Cranial nerves 3-12 NL Psych/Mental Status: Mental status NL Medications Current Medications Medications Dose Ordered Sig/Jus Route Start Time Stop Time Status Last Admin Dose Admin Pantoprazole Sodium 40 mg DAILY IV 08/06/24 10:00 08/07/24 08:42 40 MG Ceftriaxone Sodium 50 ml @ 100 mls/hr DAILY@09 IV 08/06/24 09:00 08/07/24 08:42 100 MLS/HR Acetaminophen/ Hydrocodone Bitart 1 tab Q4HP PRN PO 08/05/24 22:30 08/07/24 21:53 1 TAB Ondansetron HCl 4 mg Q4HP PRN IV 08/05/24 22:30 Docusate Sodium 100 mg BIDPRN PRN PO 08/05/24 22:30 Acetaminophen 650 mg Q6HP PRN PO 08/05/24 22:30 Nitroglycerin 0.4 mg Q5MINP PRN SL 08/05/24 23:30 Morphine Sulfate 2 mg Q30M PRN IV 08/05/24 23:30 Laboratory Results Laboratory Tests 08/06/24 03:48 Urinalysis Test 08/05/24 19:50 Urine Color Yellow (Yellow) Urine Clarity Clear (Clear) Urine pH 6.0 (5.0-9.0) Urine Specific [place] 1.023 (1.001-1.035) Urine Protein Negative (Negative) Urine Ketones Negative (Negative) Urine Blood Negative /uL (Negative) Urine Nitrite Negative (Negative) Urine Bilirubin Negative (Negative) Urine Urobilinogen Normal mg/dL (Negative) Urine Leukocyte Esterase Negative /uL (Negative) Urine RBC 1 /hpf (0 - 3) Urine Microscopic WBC 1 /HPF (0-3) Urine Squamous Epithelial Cells None seen /hpf (<5) Urine Bacteria None seen /hpf (None Seen) Urine Glucose Normal mg/dL (Normal) Microbiology Microbiology Date/Time Source Procedure Growth Status 08/05/24 22:19 Blood Blood Culture - Preliminary NO GROWTH AFTER 48 HOURS OF INCUBATION. Resulted Labs and/or images reviewed: Labs reviewed by me Assessment/Plan Assessment/Plan Acute abdominal pain Acute cholecystitis Continuing current management. Continuing with IV antibiotic. Continuing with IV pain medication. Continuing with IV fluid. Continuing to keep the patient NPO Appreciate surgeon input Cholecystectomy in a.m.. This medical document was created using an electronic medical record system with [employer] direct computerized dictation system. Although this document has been carefully reviewed, there may still be some phonetic and typographical errors. These areas are purely typographical due to imperfections of the software programs, and do not reflect any compromise in the patient's medical care. Plan discussed with: Patient Date of Service: Aug 07, 2024 Billing Provider: DANNY TENA MD Common Visit Codes: [id number] INP/OBS CARE(HIGH) DANNY TENA MD Aug 07, 2024 23:29
[2024-08-08] VITALS (8 sets, daily range): BP systolic 99–127; BP diastolic 63–76; PULSE 45–82; RESP 16–22; TEMP 97.4–98.7; O2SAT 92–98
[2024-08-08] MEDS ORDERED: DexAMETHasone SOD PHOS 10MG/1ML VIAL INJ ONE (11:29)
[2024-08-08] MEDS ORDERED: PROPOFOL 10 MG/ML 20 ML IV ONE (11:29)
[2024-08-08] MEDS ORDERED: KETOROLAC TROMETH 30 MG/ML 1ML VIAL ONE (11:29)
[2024-08-08] MEDS ORDERED: ROCURONIUM 10MG/ML 10ML VIAL IV ONE (11:29)
[2024-08-08] MEDS ORDERED: ONDANSETRON HCL 4 MG/2 ML VIAL ONE (11:29)
[2024-08-08] MEDS ORDERED: fentaNYL CITRATE 100 MCG/2 ML VL ONE (11:29)
[2024-08-08] MEDS ORDERED: LIDOCAINE 2% (LOCAL ANESTH.) PF 5ml SDV ONE ×2 (11:29→14:06)
[2024-08-08] MEDS ORDERED: SUGAMMADEX 200mg/2ml Vial (100MG/ML) IV ONE (11:29)
[2024-08-08] MEDS ORDERED: KETAMINE 50mg/ML 1ml syringe ONE (11:29)
[2024-08-08] MEDS ORDERED: GLYCOPYRROLATE 0.2 MG/ML 1ML VIAL ONE (11:29)
[2024-08-08] MEDS ORDERED: CELECOXIB 100 MG CAP PO ONE (12:30)
[2024-08-08] MEDS ORDERED: ACETAMINOPHEN IV 1000 MG/100ML (10MG/ML) IV ONE (12:30)
[2024-08-08] MEDS ORDERED: GABAPENTIN 300 MG CAP PO ONE (12:30)
--- NOTE | 2024-08-08 13:59 | DVHPN2 ---
Subjective The patient is seen and examined at bedside. No complaint today. Patient just came back from surgery. Reviewed: Care Plan, H&P, Labs, Medications, Previous Orders, Radiology Changes from previous H/P or p: No Changes Eyes: No Pain, No Vision change, No Conjunctivae inflammation, No Eyelid inflammation, No Other, No Redness ENT: No Ear pain, No Ear discharge, No Nose pain, No Nose discharge, No Nose congestion, No Mouth pain, No Mouth swelling, No Throat pain, No Throat swelling, No Other Cardiovascular: No Chest Pain, No Palpitations, No Orthopnea, No Paroxysmal Noc. Dyspnea, No Edema, No Lt Headedness, No Other Respiratory: No Cough, No Dry, No Shortness of breath, No SOB with excertion, No Wheezing, No Hemoptysis, No Pleuritic Pain, No Sputum, No Other Gastrointestinal: Nausea, Vomiting, Abdominal Pain; No Diarrhea, No Constipation, No Melena, No Hematochezia, No Other Genitourinary: No Dysuria, No Frequency, No Incontinence, No Hematuria, No Retention, No Other Musculoskeletal: No other, No neck pain, No shoulder pain, No arm pain, No back pain, No hand pain, No leg pain, No foot pain Skin: No Rash, No Lesions, No Jaundice, No Bruising, No Other Objective Vitals Vital Signs Date Time Temp Pulse Resp B/P (MAP) Pulse Ox O2 Delivery O2 Flow Rate FiO2 08/08/24 08:30 98.1 59 18 127/69 (88) 94 98.1 08/08/24 08:00 Room Air* 0 21 Intake/Output Intake and Output 08/08/24 07:00 Intake Total 500 ml Balance 500 ml Intake Oral 500 ml # Voids 9 General Appearance: Alert, Oriented X3, Cooperative, No acute distress HEENT: Atraumatic, PERRLA, EOMI, Mucous membr. moist/pink Neck: Supple Lungs: Clear to auscultation, Normal air movement Cardiovascular: Regular rate, Normal S1, Normal S2, No murmurs, Gallops, Rubs Abdomen: Normal bowel sounds, Soft, No tenderness Extremities: Normal pulses Neuro: Cranial nerves 3-12 NL Psych/Mental Status: Mental status NL Medications Current Medications Medications Dose Ordered Sig/Jus Route Start Time Stop Time Status Last Admin Dose Admin Pantoprazole Sodium 40 mg DAILY IV 08/06/24 10:00 08/08/24 08:29 40 MG Ceftriaxone Sodium 50 ml @ 100 mls/hr DAILY@09 IV 08/06/24 09:00 08/08/24 08:29 100 MLS/HR Acetaminophen/ Hydrocodone Bitart 1 tab Q4HP PRN PO 08/05/24 22:30 08/07/24 21:53 1 TAB Ondansetron HCl 4 mg Q4HP PRN IV 08/05/24 22:30 Docusate Sodium 100 mg BIDPRN PRN PO 08/05/24 22:30 Acetaminophen 650 mg Q6HP PRN PO 08/05/24 22:30 Nitroglycerin 0.4 mg Q5MINP PRN SL 08/05/24 23:30 Morphine Sulfate 2 mg Q30M PRN IV 08/05/24 23:30 Laboratory Results Laboratory Tests 08/06/24 03:48 Urinalysis Test 08/05/24 19:50 Urine Color Yellow (Yellow) Urine Clarity Clear (Clear) Urine pH 6.0 (5.0-9.0) Urine Specific [place] 1.023 (1.001-1.035) Urine Protein Negative (Negative) Urine Ketones Negative (Negative) Urine Blood Negative /uL (Negative) Urine Nitrite Negative (Negative) Urine Bilirubin Negative (Negative) Urine Urobilinogen Normal mg/dL (Negative) Urine Leukocyte Esterase Negative /uL (Negative) Urine RBC 1 /hpf (0 - 3) Urine Microscopic WBC 1 /HPF (0-3) Urine Squamous Epithelial Cells None seen /hpf (<5) Urine Bacteria None seen /hpf (None Seen) Urine Glucose Normal mg/dL (Normal) Microbiology Microbiology Date/Time Source Procedure Growth Status 08/05/24 22:19 Blood Blood Culture - Preliminary NO GROWTH AFTER 48 HOURS OF INCUBATION. Resulted Labs and/or images reviewed: Labs reviewed by me Assessment/Plan Assessment/Plan Acute abdominal pain Acute cholecystitis doctors post cholecystectomy Continuing current management. Continuing with IV antibiotic. Continuing with IV pain medication. Continuing with IV fluid. Continuing to keep the patient NPO, advance diet to clear liquid diet per surgeon Appreciate surgeon input Status post cholecystectomy. Encouraged the patient to be out of bed and ambulate This medical document was created using an electronic medical record system with M[employer] direct computerized dictation system. Although this document has been carefully reviewed, there may still be some phonetic and typographical errors. These areas are purely typographical due to imperfections of the software programs, and do not reflect any compromise in the patient's medical care. Plan discussed with: Patient Date of Service: Aug 08, 2024 Billing Provider: DANNY TENA MD Common Visit Codes: [id number] INP/OBS CARE(HIGH) DANNY TENA MD Aug 08, 2024 13:59
[2024-08-08] MEDS: LIDOCAINE W/ EPINEPHRINE 1% 20ML VIAL ONE (14:36)
[2024-08-08] MEDS: BUPIVACAINE HCL 0.25% P/F 10 ML VIAL ONE (14:36)
[2024-08-08] MEDS ORDERED: HYDROmorphone HCL 2 MG/ML VL/or syr IV PRN ×2 (15:00→15:15)
[2024-08-08] MEDS ORDERED: ONDANSETRON HCL 4 MG/2 ML VIAL IV PRN (15:15)
[2024-08-08] MEDS ORDERED: FLUMAZENIL 0.1 MG/ML INJ 10ML MDV IV PRN (15:15)
[2024-08-08] MEDS ORDERED: NALOXONE HCL 0.4 MG/ML VIAL IV PRN (15:15)
[2024-08-08] MEDS ORDERED: fentaNYL CITRATE 100 MCG/2 ML VL IV PRN (15:15)
[2024-08-08] MEDS ORDERED: hydrALAZINE HCL 20 MG/ML VL IV PRN (15:15)
[2024-08-08] MEDS ORDERED: ePHEDrine SULFATE 50 MG/ML AMP IV PRN (15:15)
--- NOTE | 2024-08-08 15:33 | DVHOP ---
DATE OF SURGERY: 08/08/2024 PREOPERATIVE DIAGNOSES: * Cholelithiasis. * Cholecystitis POSTOPERATIVE DIAGNOSES: * Cholelithiasis. * Cholecystitis. SURGEON: Mt Bell MD [employer] MANAGER: Lv Jimenez NP ANESTHESIA: General endotracheal. 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 PROCEDURE: Laparoscope and laparoscopic cholecystectomy. DESCRIPTION OF PROCEDURE: Under general endotracheal anesthesia with the skin prepped with Betadine, a supraumbilical incision was made and a Veress needle inserted by the hanging drop technique to establish pneumoperitoneum to 15 mmHg pressure by insufflation with carbon dioxide. With the abdomen fully distended, the needle was removed and replaced with a 5-mm trocar port to which a 0-degree viewing laparoscope was inserted under direct vision. A 10-mm port was inserted through the midline subxiphoid skin and a 5-mm port inserted through the anterior axillary line at the level of the umbilicus. Instrumentation was introduced. Laparoscopy was performed revealing no unexpected pathology. The gallbladder was affected by severe acute cholecystitis. The gallbladder was almost entirely intrahepatic. The gallbladder was grasped with a grasping forceps and then aspirated. The bile was sent for cultures and sensitivity. Subsequently, the cystic duct and cystic artery were identified, circumferentially dissected, skeletonized, and traced into the hepatic cystic triangle so as to minimize the potential for an inadvertent injury to the common bile duct. Subsequently, the cystic duct and cystic artery were divided between metallic clips close to the gallbladder, again attempting to avoid injury to the common bile duct. Following division of these structures, the gallbladder was elevated from the liver bed and peeled out of its intrahepatic position, which resulted in some deluding of the liver; however, no significant hemorrhage ensued. The fully mobilized gallbladder was placed into a specimen extraction bag and removed from the peritoneal cavity. Subsequently, the subhepatic space was irrigated. Irrigant was aspirated. Hemostasis was meticulously inspected and found to be complete. At the termination of the procedure, there was no evidence of bleeding at either liver bed or from the port sites. Instrumentation was withdrawn. Pneumoperitoneum was evacuated. Fascial defect closed using 0 Vicryl. Wounds were approximated using Monocryl sutures, Dermabond glue, and Steri-Strips. The patient remained stable throughout the procedure. She left the operating room following an accurate needle and sponge count. The patient's was thoroughly informed by phone. Mt Bell MD PF/HENRRY TID: [id number] RECEIPT: [id number]
[2024-08-08] MEDS: oxyCODONE HCL 5MG TAB PO PRN (19:36)
[2024-08-08] MEDS: metroNIDAZOLE 500MG/100ML 100 ML IV SCH (22:49)
[2024-08-09 01:00] VITALS: BP 112/72; PULSE 67; RESP 20; TEMP 98.6; O2SAT 95
[2024-08-09 05:00] VITALS: BP 114/67; PULSE 64; RESP 20; TEMP 98.1; O2SAT 94
[2024-08-09 07:40] LABS: Basophils # (auto) 0 10 ^3/uL (0-0.2); Basophils % (auto) 0.2 % (0.0-2.0); Eosinophils # (auto) 0.1 10 ^3/uL (0-0.8); Eosinophils % (auto) 0.6 % (0.0-7.0); Hemoglobin 14.3 g/dL (13.5-17.5); Lymphocytes # (auto) 0.9 10 ^3/uL (0.4-5.4); Lymphocytes % (auto) 8.3 % (10.0-50.0); Mean Corpuscular Hemoglobin 32.5 pg (28.0-32.0); Monocytes # (auto) 0.6 10 ^3/uL (0-1.3); Monocytes % (auto) 5.8 % (0.0-12.0); Neutrophils # (auto) 9.4 10 ^3/uL (1.6-8.6); Neutrophils % (auto) 85.1 % (37.0-80.0); Platelet Count (auto) 210 10^3/uL (140-450); Red Blood Cells 4.41 10^6/uL (4.5-5.90)
[2024-08-09 08:00] VITALS: PULSE 69; RESP 17
[2024-08-09 09:00] VITALS: BP 112/66; PULSE 59; RESP 18; TEMP 98; O2SAT 97
--- NOTE | 2024-08-09 11:35 | DVHDS2 ---
Discharge Summary Date of Admission Aug 05, 2024 at 23:25 Labs/Diagnostic Data: Laboratory Results Test 08/09/24 06:17 08/06/24 03:48 08/05/24 22:19 08/05/24 20:12 White Blood Count 11.0 10^3/uL (4.4-10.8) Red Blood Count 4.41 10^6/uL (4.5-5.90) Hemoglobin 14.3 g/dL (13.5-17.5) Hematocrit 41.0 % (41.0-53.0) Mean Corpuscular Volume 93.0 fL (80.0-100.0) Mean Corpuscular Hemoglobin 32.5 pg (28.0-32.0) Mean Corpuscular Hemoglobin Concent 35.0 g/dL (32.0-36.0) Red Cell Distribution Width 13.0 % (11.8-14.3) Platelet Count 210 10^3/uL (140-450) Mean Platelet Volume 9.3 fL (6.9-10.8) Neutrophils (%) (Auto) 85.1 % (37.0-80.0) Lymphocytes (%) (Auto) 8.3 % (10.0-50.0) Monocytes (%) (Auto) 5.8 % (0.0-12.0) Eosinophils (%) (Auto) 0.6 % (0.0-7.0) Basophils (%) (Auto) 0.2 % (0.0-2.0) Neutrophils # (Auto) 9.4 10 ^3/uL (1.6-8.6) Lymphocytes # (Auto) 0.9 10 ^3/uL (0.4-5.4) Monocytes # (Auto) 0.6 10 ^3/uL (0-1.3) Eosinophils # (Auto) 0.1 10 ^3/uL (0-0.8) Basophils # (Auto) 0 10 ^3/uL (0-0.2) Nucleated Red Blood Cells 0.0 % Total Bilirubin 0.5 mg/dL (0.2-1.0) Sodium Level 140 mmol/L (136-145) Potassium Level 3.9 mmol/L (3.5-5.1) Chloride Level 103 mmol/L (98-107) Carbon Dioxide Level 30 mmol/L (20-31) Anion Gap 7 (5-15) Blood Urea Nitrogen 9 mg/dL (9-23) Creatinine 1.08 mg/dL (0.700-1.30) Glomerular Filtration Rate Calc 91 mL/min (>90) BUN/Creatinine Ratio 8.3 (10.0-20.0) Serum Glucose 89 mg/dL (74-106) Calcium Level 8.8 mg/dL (8.7-10.4) Aspartate Amino Transferase (AST) 17 U/L (<34) Alanine Aminotransferase (ALT) 12 U/L (7-40) Alkaline Phosphatase 63 U/L (46-116) Total Protein 6.5 g/dL (5.7-8.2) Albumin 4.0 g/dL (3.2-4.8) Troponin I High Sensitivity < 3 ng/L (</=54) Lipase 47 U/L (12-53) Test 08/05/24 19:50 Urine Color Yellow (Yellow) Urine Clarity Clear (Clear) Urine pH 6.0 (5.0-9.0) Urine Specific [place] 1.023 (1.001-1.035) Urine Protein Negative (Negative) Urine Ketones Negative (Negative) Urine Blood Negative /uL (Negative) Urine Nitrite Negative (Negative) Urine Bilirubin Negative (Negative) Urine Urobilinogen Normal mg/dL (Negative) Urine Leukocyte Esterase Negative /uL (Negative) Urine RBC 1 /hpf (0 - 3) Urine Microscopic WBC 1 /HPF (0-3) Urine Squamous Epithelial Cells None seen /hpf (<5) Urine Bacteria None seen /hpf (None Seen) Urine Glucose Normal mg/dL (Normal) Other Laboratory Tests 08/09/24 06:17 08/06/24 03:48 Discharge Statement: "Patient was advised to return to the ER or call 911 if any headaches, dizziness, shortness of breath, chest pain, abdominal pain, bleeding, fevers, or worsening of medical condition. Patient was counseled about treatment plan, medications, possible side effects, patientverbalized understanding. All questions were answered to the best of my ability. This discharge took greater then 30 minutes in planning, reviewing documentation, counseling the patient, and discussing with other team members." ASSESSMENT ASSESSMENT Assessment DANNY TENA MD Aug 09, 2024 11:35
[2024-08-09] MEDS ORDERED: LEVO500T91 PO (11:36)
[2024-08-09] MEDS ORDERED: METR-344 PO (11:36)
[2024-08-09] MEDS ORDERED: HYDR-4902 PO (11:36)
[2024-08-09 12:53] VITALS: BP 125/70; PULSE 78; RESP 18; TEMP 98.4; O2SAT 97
== END 2024-08-09 13:42 | disposition left against medical advice (07) | DRG 263 ==
LOC: ER 19:26 → EDBD 19:26 → OVERFLOW 23:25 → TELE-EAST 08-06 18:31
PROVIDERS: ADMIT Internal Medicine; ATTEND Internal Medicine
PROC: 0FT44ZZ Resection of Gallbladder, Percutaneous Endoscopic Approach (ICD-10-PCS; principal; 2024-08-08 14:04)
DX: K80.00 Calculus of gallbladder with acute cholecystitis without obstruction (principal); Z53.29 Procedure and treatment not carried out because of patient's decision for other reasons; Z79.899 Other long term (current) drug therapy; Z82.0 Family history of epilepsy and other diseases of the nervous system; Z83.3 Family history of diabetes mellitus
CPT/HCPCS: 36415; 74176; 76705; 80053; 81001; 82247; 83690; 84484; 85025; 86850; 86900; 86901; 87040; 87070; 87075; 87205; 96361; 96374; 96375; G0378; J0131; J1100; J1885; J2003; J2405; J2470; J2543; J2704; J3490